=== PATIENT | female | born 1995 | race American Indian/Alaskan Native ===

== ENCOUNTER 2020-04-10 16:33 | Emergency (ER) | payer SELFPAY ==
[2020-04-10 16:41] VITALS: BP 94/62
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
== END 2020-04-10 18:18 | disposition home or self-care (01) ==
LOC: ED 16:33
DX: S06.0X9A Concussion with loss of consciousness of unspecified duration, initial encounter (principal); Z79.1 Long term (current) use of non-steroidal anti-inflammatories (NSAID); V49.49XA Driver injured in collision with other motor vehicles in traffic accident, initial encounter; Y93.89 Activity, other specified; Y92.488 Other paved roadways as the place of occurrence of the external cause; Y99.8 Other external cause status
CPT/HCPCS: 99282